=== PATIENT | male | born 1965 | race Caucasian/White ===

== ENCOUNTER 2020-09-26 15:49 | Emergency (ER) | payer OTHER, SELFPAY ==
[2020-09-26] VITALS (22 sets, daily range): BP systolic 128–181; BP diastolic 89–112; PULSE 60–85; RESP 12–20; TEMP 36.3; O2SAT 95–99
--- NOTE | ~2020-09-26 | CT_ITS ---
EXAMINATION: CT abdomen pelvis w con INDICATION: Abdominal pain TECHNIQUE: Computed tomographic images of the abdomen and pelvis were obtained after the administrati on of 100 cc of Omnipaque 350 intravenous contrast. The dose-length product (DLP) was 1521.18 mGy-cm. Automated exposure control and iterative reconstruction technique were employed. COMPARISON: None available FINDINGS: Minimal dependent atelectasis is present in the lung bases. The heart size is normal. The l iver is diffusely low in attenuation when compared with the spleen, consistent with hepatic steatosis . There is a 10 mm cyst of the right hepatic lobe. The spleen, pancreas, and adrenal glands are soco l. The gallbladder is surgically absent. There is a 5 mm nonobstructing stone of the left kidney lowe r pole. There is a wedge-shaped area of decreased perfusion in the right kidney upper pole. A retroao rtic left renal vein is noted. No pathologically enlarged abdominal or pelvic lymph nodes are identif ied. There is no free intraperitoneal gas or evidence of bowel obstruction. The appendix is normal. T here is moderate lumbar spondylosis at L5-S1. A fat-containing umbilical hernia is noted. IMPRESSION: 1. No CT correlate for the patient's symptoms. 2. Wedge-shaped area of decreased perfusion in the right kidney upper pole which could reflect focal infarct, infection, or possibly neoplasm. Follow-up with nonemergent CT or MRI without and with contr ast is recommended. 3. Diffuse hepatic steatosis. Reviewed, dictated and finalized at location A. IMPRESSION: 1. No CT correlate for the patient's symptoms. 2. Wedge-shaped area of decreased perfusion in the right kidney upper pole whic h could reflect focal infarct, infection, or possibly neoplasm. Follow-up with nonemergent CT or MRI without and with contrast is recommended. 3. Diffuse hepatic steatosis.
--- NOTE | 2020-09-26 15:54 | ECG_ITS ---
Measurements Intervals [place] Rate: 61 P: 19 [place]: 199 QRS: 1 QRSD: 103 T: 41 QT: 429 QTc: 432 Interpretive Statements SINUS RHYTHM BORDERLINE AV CONDUCTION DELAY EARLY PRECORDIAL R/S TRANSITION BASELINE ARTIFACT- I, III, AVL, AVF BORDERLINE ECG Electronically Signed On 09-26-2020 18:17:59 CDT by Gavin Regalado D.O.
[2020-09-26 16:19] LABS: Basophils Percent Auto 0.3 % (0.2-1.2); Eosinophils Absolute Auto 0.2 K/mm3 (0-0.3); Eosinophils Percent Auto 1.5 % (0-4.4); Hematocrit 46.3 % (42.0-52.0); Hemoglobin 16.2 g/dL (14.0-18.0); Immature Granulocyte Absolute 0.03 K/mm3 (0.00-0.031); Immature Granulocyte Percent A 0.2 % (0-0.5); Lymphocytes Absolute Auto 2.68 K/mm3 (0.9-3.2); Lymphocytes Percent Auto 20.4 % (18.3-44.2); Mean Corpuscular Hemoglobin 31.6 pg (26-34); Mean Corpuscular Volume 90.3 fl (80-100); Mean Platelet Volume 10.2 fl (7.4-10.4); Monocytes Absolute Auto 1.1 K/mm3 (0.1-0.6); Monocytes Percent Auto 8.1 % (2.6-8.5); Neutrophils Absolute Auto 9.2 K/mm3 (1.3-6.7); Neutrophils Percent Auto 69.5 % (45.5-73.1); Platelet Count Result 277 k/mm3 (150-375); Red Blood Count 5.13 M/mm3 (4.6-6.20); White Blood Count 13.2 K/mm3 (4.5-10.0)
[2020-09-26 16:44] LABS: Alanine Aminotransferase 48 U/L (4-50); Albumin Level 4.7 g/dL (3.5-5.1); Alkaline Phosphatase 96 U/L (38-126); Anion Gap 14 mmol/L (8-16); Aspartate Amino Transferase 36 U/L (17-59); Bilirubin,Total 0.5 mg/dL (0.2-1.3); Blood Urea Nitrogen 18 mg/dL (9-20); Calcium 10.2 mg/dL (8.4-10.2); Carbon Dioxide 18 mmol/L (22-30); Chloride 106 mmol/L (98-107); Estimated CRCL calculation 98 ml/min; Estimated Glomerular Filt Rate > 60; Glucose 138 mg/dL (65-110); Lipase 63 U/L (23-300); Potassium 4.1 mmol/L (3.4-5.0); Sodium 138 mmol/L (137-145)
[2020-09-26] MEDS: SODIUM CHLORIDE 0.9% IV 1,000 ML 999 ML IV CONT (17:12)
[2020-09-26] MEDS: FAMOTIDINE 20 MG/2 ML VIAL IV PUSH (17:14)
[2020-09-26] MEDS: MORPHINE SULFATE (*CRX) 4 MG/ML INJ IV PUSH (17:14)
[2020-09-26] MEDS: PROMETHAZINE HCL 25 MG/ML AMPUL 12.5 MG IV PUSH (17:14)
[2020-09-26 17:50] LABS: Add Urine Microscopic? YES; Appearance Urine Clear (Clear); Bilirubin Urine Negative (Negative); Blood Urine Negative (Negative); Color Urine Straw (Yellow); Glucose Urine UA Negative (Negative); Ketones Urine Trace mg/dL (Negative); Leukocyte Esterase Ur Negative LEU/UL (Negative); Nitrate Urine Negative (Negative); Protein Urine 1+ mg/dL (Negative); RBC Urine 0-2 /hpf (0-2); Specific Grav Ur 1.032 (1.001-1.035); Urobilinogen Urine Negative mg/dL (<2.0); WBC Urine 0-3 /hpf
--- NOTE | 2020-09-26 18:08 | ED.GENADULT ---
HPI - General Adult General Chief complaint: Abdominal Pain Stated complaint: epigastric/abdominal pain Time Seen by Provider: 09/26/20 16:44 Source: patient and RN notes reviewed Mode of arrival: ambulatory Limitations: no limitations History of Present Illness HPI narrative: Patient is a 54-year-old male who presents to emergency department for evaluation of severe abdominal pain that began acutely just prior to arrival patient denies similar occurrence in the past he had just eaten some cottage cheese which was new and began to have sudden onset of pain in the epigastrium which persisted with nausea vomiting and diaphoretic state patient presents with his very uncomfortable has not taken anything for his symptoms denies any recent illness or other complaints and had felt fine prior to the onset of symptoms Related Data Allergies Allergy/AdvReac Type Severity Reaction Status Date / Time No Known Allergies Allergy Verified 09/26/20 15:54 Review of Systems Review of Systems: All systems reviewed & are unremarkable except as noted in HPI and below PMFSH Past Medical History Medical History Acute bilateral low back pain without sciatica Essential hypertension High serum cholestanol Hyperglycemia Surgical History Surgical History H/O lumbar discectomy Hx of cholecystectomy Family History Family History (Updated 08/05/19 @ 09:07 by Barb Taylor [facility]) Father Family history of coronary artery disease Mother Diabetes mellitus Hypertension Sibling Hypothyroidism Social History Social History Smoking status: Never smoker Alcohol intake: current Gender identity (if verbalized by the patient): Male Exam Narrative: GENERAL: Ill-appearing, well-nourished, uncomfortable and in no acute distress. HEAD: Normocephalic, atraumatic. EYES: PERRLA and EOMI. ENT: Nares clear, no rhinorrhea or epistaxis. Mucous membranes moist. Oropharynx without tonsillar hypertrophy exudate or other lesions. Bilateral TMs pearly g[place] nonbulging NECK: Supple. No adenopathy or masses. No carotid bruits or JVD CHEST: Clear to auscultation. No respiratory distress. No wheezes rales or rhonchi HEART: Regular rate and rhythm. No murmur heard. Normal peripheral pulses. ABDOMEN: Soft, generalized tenderness, nondistended, normal active bowel sounds. EXTREMITIES: Normal range of motion. No edema. SKIN: Warm, dry, no rash. NEURO: No focal deficits. Alert and oriented x3. PSYCH: Normal mood and affect. Course Course Emergency Course: Patient evaluated for abdominal pain in the emergency department was medicated had CT imaging and other evaluation he is resting comfortably in the room at this time with resolution of his symptoms patient feels much comfortable. Patient with no other concerning findings at this time will be discharged home with outpatient follow-up she is agreeing with this plan he is afebrile nontoxic-appearing no distress and felt appropriate for outpatient reevaluation Vital Signs Vital signs: Vital Signs Temperature 97.4 F L 09/26/20 15:49 Pulse Rate 62 09/26/20 15:49 Respiratory Rate 20 09/26/20 15:49 Blood Pressure 128/92 H 09/26/20 15:49 Pulse Oximetry 98 09/26/20 15:49 Temperature 97.4 F L 09/26/20 15:49 Pulse Rate 66 09/26/20 19:01 Respiratory Rate 14 09/26/20 19:01 Blood Pressure 157/93 H 09/26/20 19:01 Pulse Oximetry 99 09/26/20 19:01 Medical Decision Making Vital Signs Vital Signs: Vital Signs Temperature 97.4 F L 09/26/20 15:49 Pulse Rate 62 09/26/20 15:49 Respiratory Rate 20 09/26/20 15:49 Blood Pressure 128/92 H 09/26/20 15:49 Pulse Oximetry 98 09/26/20 15:49 Temperature 97.4 F L 09/26/20 15:49 Pulse Rate 66 09/26/20 19:01 Respiratory Rate 14 09/26/20 19:01 Blood
[2020-09-26] MEDS: HYOSCYAMINE SULFATE 0.125 MG TABLET PO (18:29)
[2020-09-26] MEDS: LACTATED RINGERS 1,000 ML 999 ML IV CONT (18:29)
[2020-09-26] MEDS: ONDANSETRON INJ 4 MG/2 ML VIAL IV PUSH (19:31)
[2020-09-26] MEDS: KETOROLAC 30 MG/ML VIAL (*BKC) IV PUSH (19:39)
--- NOTE | 2020-09-26 20:03 | PC.NURSE ---
PO challenge of ice chips given to pt. family at bedside. reports pain improved since arrival.
== END 2020-09-26 21:03 | disposition home or self-care (01) ==
PROVIDERS: Emergency Provider Emergency Medicine; PCP Internal Medicine
DX: R10.9 Unspecified abdominal pain (principal); I10 Essential (primary) hypertension; K76.0 Fatty (change of) liver, not elsewhere classified; R94.31 Abnormal electrocardiogram [ECG] [EKG]; R93.421 Abnormal radiologic findings on diagnostic imaging of right kidney
CPT/HCPCS: 36415; 74177; 80053; 81001; 83690; 85025; 93005; 96361; 96374; 96375; 99284; A9270; J1885; J2270; J2405; J2550; J7030; J7120; Q9967

== ENCOUNTER 2022-08-16 17:01 | Emergency (ER) | payer OTHER, SELFPAY ==
[2022-08-16 17:05] VITALS: BP 143/98; PULSE 62; RESP 20; TEMP 36.4; O2SAT 99
--- NOTE | 2022-08-16 17:08 | ED.ABDPAIN ---
HPI - Abdominal Pain General Chief Complaint: Abdominal Pain Stated Complaint: ABD/FLANK PAIN Time Seen by Provider: 08/16/22 17:08 Source: patient, RN notes reviewed and old records reviewed Mode of arrival: ambulatory Limitations: no limitations History of Present Illness HPI narrative: 56-year-old male presents to the [facility] with complaints of left-sided abdominal, flank pain that started at 7:00 a.m. this Morning. patient reports nausea. Denies chest pain. Shortness of breath. Denies history of kidney stones or diverticulitis. no treatment prior to arrival Last bowel movement this morning, states it was normal Onset (ago): hour(s) (10) Related Data Allergies Allergy/AdvReac Type Severity Reaction Status Date / Time No Known Allergies Allergy Verified 08/16/22 17:06 Review of Systems Review of Systems: All systems reviewed & are unremarkable except as noted in HPI and below Constitutional: Constitutional: Reports no additional constitutional complaints Eyes: Eyes: Reports no additional eye complaints ENT: Reports system reviewed and no additional complaints, except as documented Cardiovascular: Cardiovascular: Reports no additional cardiovascular complaints, Denies chest pain and Denies dyspnea Respiratory: Respiratory: Reports no additional respiratory complaints, Denies chest congestion, Denies cough and Denies dyspnea Gastrointestinal: Gastrointestinal: Reports as per HPI, Reports abdominal pain, Reports nausea and Denies vomiting Musculoskeletal: Musculoskeletal: Reports no additional musculoskeletal complaints Integumentary/Breasts: Skin/Breast: Reports system reviewed and no additional complaints, except as docu Neurologic: Reports system reviewed and no additional complaints, except as documented Psychiatric: Psychiatric: Reports no additional psychiatric complaints Allergic/Immunologic: Allergic/Immunologic: Reports no additional allergic/immunologic complaints [facility] Past Medical History Medical History Acute bilateral low back pain without sciatica Essential hypertension High serum cholestanol Hyperglycemia Surgical History Surgical History H/O lumbar discectomy Hx of cholecystectomy Family History Family History Father Family history of coronary artery disease Mother Diabetes mellitus Hypertension Sibling Hypothyroidism Social History Social History Smoking status: Never smoker Alcohol intake: current Lack of Transportation: No Lack of Food: Never True Current Housing: I Have Housing Concerned About Future Housing: No Difficulty Paying Gas/Electric Bills: No Difficulty Paying for Meds: No Currently Unemployed: No Education: Master's Degree or Higher Difficulty w/ Childcare or Family Care: No Gender identity (if verbalized by the patient): Male Comments At the time of my signature, I reviewed and agree with the nursing past medical, surgical, social, and family history. There is no relevant family history pertinent to the patient complaint. Exam Const: General: cooperative, healthy appearing, no acute distress, well developed, alert, acute distress moderate (pain), uncomfortable, well nourished and overweight Nutritional Appearance: well nourished Orientation/consciousness: patient oriented x3 Limitations: no limitations HENMT: Head: normal to inspection Ears: hearing grossly normal bilaterally and external ears normal Face/Nose/Sinus: Normal external nose present, Normal nares present, Normal nasal mucous membranes and turbinates present and normal facial exam Face and sinus: normal facial exam Mouth: Yes moist mucous membranes Eyes: General: appearance normal, both eyes and all related structures Alignment and Position:
== END 2022-08-16 17:25 | disposition short-term general hospital (02) ==
PROVIDERS: Emergency Provider Nurse Practitioner; PCP Internal Medicine
DX: R10.9 Unspecified abdominal pain (principal); I10 Essential (primary) hypertension; E78.00 Pure hypercholesterolemia, unspecified
CPT/HCPCS: 81003; 99212; G0463

== ENCOUNTER 2022-08-16 17:40 | Emergency (ER) | payer OTHER, SELFPAY ==
--- NOTE | ~2022-08-16 | CT_ITS ---
EXAMINATION: CT abdomen pelvis wo con DATE: 08/16/2022 21:09 INDICATION: left flank TECHNIQUE: Computed tomography (CT) of the abdomen and pelvis was performed without intravenous contr ast. Automated exposure control and iterative reconstruction technique were employed. The dose-length product was 1389.21 mGy-cm. COMPARISON: 09/26/2020. FINDINGS: Lower thorax: Calcified left upper lobe granuloma. Mild bibasilar scar/atelectasis. Aortic valve and coronary artery calcification. Mild symmetric gynecomastia. Liver: Enlarged. Subcentimeter right lobe hypodensity, likely cyst or hemangioma. Mild diffuse fatty infiltration Biliary/Gallbladder: Gallbladder is absent. No bile duct dilation. Pancreas: No mass or duct dilation. Spleen: Normal. Adrenals:No mass. Kidneys: 6 mm calcification at the left UPJ. Multiple punctate bilateral nonobstructing calculi. No s uspicious mass. Moderate left pelviectasis and caliectasis. Moderate left perinephric stranding. Righ t upper pole cortical scar. GI tract: No small or large bowel dilation. Normal appendix. Mesentery/Peritoneum: No ascites, mass, or free air. Retroperitoneum: No mass. Mild atherosclerotic abdominal aortic and/or arterial calcifications. Pelvis: Pelvic organs are within normal limits. Soft Tissues: Uncomplicated, fat-containing umbilical and left inguinal hernias. Bones: No acute osseous finding. IMPRESSION: Hepatomegaly and steatosis. 6 mm calcification in the left UPJ causing moderate obstructive uropathy. Reviewed, dictated and finalized at location K.
[2022-08-16 17:52] VITALS: BP 182/74; PULSE 64; RESP 20; TEMP 36.2; O2SAT 97
[2022-08-16 18:15] LABS: Basophils Percent Auto 0.3 % (0.2-1.2); Hematocrit 47.6 % (42.0-52.0); Hemoglobin 16.7 g/dL (14.0-18.0); Immature Granulocyte Absolute 0.04 K/mm3 (0.00-0.031); Immature Granulocyte Percent A 0.3 % (0-0.5); Lymphocytes Absolute Auto 0.92 K/mm3 (0.9-3.2); Lymphocytes Percent Auto 5.8 % (18.3-44.2); Mean Corpuscular HGB Conc 35.1 g/dl (32-36); Mean Corpuscular Hemoglobin 32.6 pg (26-34); Mean Corpuscular Volume 92.8 fl (80-100); Mean Platelet Volume 10.3 fl (7.4-10.4); Monocytes Absolute Auto 0.7 K/mm3 (0.1-0.6); Monocytes Percent Auto 4.1 % (2.6-8.5); Neutrophils Absolute Auto 14.2 K/mm3 (1.3-6.7); Neutrophils Percent Auto 89.5 % (45.5-73.1); Platelet Count Result 274 k/mm3 (150-375); Red Blood Count 5.13 M/mm3 (4.6-6.20); Red Cell Distribution Width 12.5 % (11.5-14.5); White Blood Count 15.9 K/mm3 (4.5-10.0)
[2022-08-16 18:27] LABS: Alanine Aminotransferase 39 U/L (6-50); Albumin Level 4.9 g/dL (3.5-5.1); Alkaline Phosphatase 72 U/L (38-126); Anion Gap 12 mmol/L (8-16); Aspartate Amino Transferase 29 U/L (17-59); Blood Urea Nitrogen 18 mg/dL (9-20); Calcium 9.2 mg/dL (8.4-10.2); Carbon Dioxide 20 mmol/L (22-30); Chloride 108 mmol/L (98-107); Estimated CRCL calculation 74 ml/min; Estimated Glomerular Filt Rate 58; Glucose 146 mg/dL (65-110); Potassium 4.1 mmol/L (3.4-5.0); Sodium 140 mmol/L (137-145)
[2022-08-16 18:33] LABS: Appearance Urine Clear (Clear); Bacteria Urine None Seen /hpf; Bilirubin Urine Negative (Negative); Blood Urine Trace (Negative); Color Urine Yellow (Yellow); Glucose Urine UA Negative (Negative); Ketones Urine 1+ mg/dL (Negative); Leukocyte Esterase Ur Negative LEU/UL (Negative); Nitrate Urine Negative (Negative); Non Pathogenic Casts 0-2; Protein Urine Trace mg/dL (Negative); RBC Urine 0-2 /hpf (0-2); Specific Grav Ur 1.022 (1.001-1.035); Squamous Epithelial Cell Urine None seen /hpf (Few); Urobilinogen Urine 0.2 mg/dL (<2.0); WBC Urine 0-5 /hpf; pH Urine 5.5 (5.0-9.0)
[2022-08-16 18:36] LABS: Add Urine Microscopic? YES
--- NOTE | 2022-08-16 21:01 | ED.GENADULT ---
HPI - General Adult General Chief complaint: Urogenital-Male <Maverick Augustin PA-C - Last Filed: 08/17/22 00:10> Stated complaint: flank pain <Maverick Augustin PA-C - Last Filed: 08/17/22 00:10> Time Seen by Provider: 08/16/22 20:54 <Maverick Augustin PA-C - Last Filed: 08/17/22 00:10> Source: patient <Maverick Augustin PA-C - Last Filed: 08/17/22 00:10> Mode of arrival: ambulatory <SIXTO Willis Last Filed: 08/17/22 00:10> Limitations: no limitations <Maverick Augustin PA-C Last Filed: 08/17/22 00:10> History of Present Illness HPI narrative: This is a 56-year-old male who presents to the ED with chief complaint of left flank pain radiating to the left side of the abdomen beginning around 730 this morning.. He reports he is nauseous but has not vomited. Denies any fevers, chills, urinary symptoms. <Maverick Augustin PA-C Last Filed: 08/17/22 00:10> Related Data Allergies/adverse reactions: Allergies Allergy/AdvReac Type Severity Reaction Status Date / Time No Known Allergies Allergy Verified 08/16/22 17:06 <Maverick Augustin PA-C - Last Filed: 08/17/22 00:10> [facility] Past Medical History Medical History: Medical History Acute bilateral low back pain without sciatica Essential hypertension High serum cholestanol Hyperglycemia <SIXTO Willis Last Filed: 08/17/22 00:10> Surgical History Surgical History: Surgical History H/O lumbar discectomy Hx of cholecystectomy <SIXTO Willis Last Filed: 08/17/22 00:10> Family History Family History: Family History Father Family history of coronary artery disease Mother Diabetes mellitus Hypertension Sibling Hypothyroidism <Maverick Augustin PA-C - Last Filed: 08/17/22 00:10> Social History Social History: Social History Smoking status: Never smoker Alcohol intake: current Lack of Transportation: No Lack of Food: Never True Current Housing: I Have Housing Concerned About Future Housing: No Difficulty Paying Gas/Electric Bills: No Difficulty Paying for Meds: No Currently Unemployed: No Education: Master's Degree or Higher Difficulty w/ Childcare or Family Care: No Gender identity (if verbalized by the patient): Male <Maverick Augustin PA-C - Last Filed: 08/17/22 00:10> Exam Narrative: GENERAL: Writhing in pain. HEAD: Normocephalic, atraumatic. EYES: PERRLA and EOMI. ENT: Nares clear, no rhinorrhea or epistaxis. Mucous membranes moist. Oropharynx without tonsillar hypertrophy exudate or other lesions. NECK: Supple. No adenopathy or masses. CHEST: No respiratory distress. Clear to auscultation. No wheezes rales or rhonchi HEART: Regular rate and rhythm. No murmur heard. Normal peripheral pulses. ABDOMEN: Left flank tenderness. Negative right flank tenderness. Soft, otherwise nontender, nondistended, normal active bowel sounds. MSK: Normal range of motion. No edema. SKIN: Warm, dry, no rash. NEURO: Alert and oriented x3. No focal deficits. PSYCH: Normal mood and affect. <Maverick Augustin PA-C - Last Filed: 08/17/22 00:10> Course INSEAMER/PA Physician Supervision Patient with proximal kidney stone without evidence of significant hydronephrosis, no severe acute kidney injury, no urinary tract infection. Patient was given IV fluids, antiemetic and pain medication with good improvement in his symptoms. He was able to tolerate oral intake and had good pain control at time of reassessment. Plan for outpatient follow-up with urology. I personally evaluated and examined the patient in conjunction with the APC and agree with the assessment, treatment plan and disposition of the patient as recorded by the APC. <Blanca Ruvalcaba MD - Last Filed: 08/17
[2022-08-16] MEDS: ONDANSETRON INJ 4 MG/2 ML VIAL IV PUSH (21:51)
[2022-08-16] MEDS: HYDROmorphone HCL INJ (*CRX) 1 MG/ML SYR 0.5 MG IV PUSH (21:51)
== END 2022-08-16 22:40 | disposition home or self-care (01) ==
PROVIDERS: Emergency Medicine; Emergency Provider Physician Assistant; PCP Internal Medicine
DX: N13.9 Obstructive and reflux uropathy, unspecified (principal); N20.1 Calculus of ureter; I10 Essential (primary) hypertension; Z90.49 Acquired absence of other specified parts of digestive tract; K76.0 Fatty (change of) liver, not elsewhere classified
CPT/HCPCS: 36415; 74176; 80053; 81001; 85025; 96374; 96375; 99284; J1170; J2405

== ENCOUNTER → 2022-08-22 11:35 | Outpatient (CLI) | payer OTHER, SELFPAY ==
--- NOTE | ~2022-08-22 | XR_ITS ---
EXAM: XR abdomen/kub 1V DATE: 08/22/2022 11:59 HISTORY: Left ureteral stone . COMPARISON: CT abdomen and pelvis 08/16/2022. FINDINGS: Cholecystectomy clips. Clear lung bases. Normal bowel gas pattern. No organomegaly. 4 mm x 6 calcification in the left pelvis. Regional bones and soft tissues normal for age. IMPRESSION: 4 mm x 6 stone in the left distal ureter/left UVJ. Reviewed, dictated and finalized at location K.
== END ==
PROVIDERS: PCP Internal Medicine; Visit Provider Urology
DX: N20.1 Calculus of ureter (principal)
CPT/HCPCS: 74018

== ENCOUNTER 2022-08-25 11:05 | Outpatient (CLI) | payer OTHER, SELFPAY ==
--- NOTE | 2022-08-25 11:29 | ECG_ITS ---
Measurements Intervals [place] Rate: 67 P: 31 [place]: 211 QRS: -17 QRSD: 108 T: 16 QT: 412 QTc: 436 Interpretive Statements SINUS RHYTHM WITH FIRST DEGREE AV BLOCK MODERATE VOLTAGE CRITERIA FOR LVH, CONSIDER NORMAL VARIANT [MEETS CRITERIA IN ONE OF: R(aVL), S(V1), R(V5), R(V5/V6)+S(V1)] COMPARED TO ECG 09/26/2020 15:58:47 FIRST DEGREE AV BLOCK NOW PRESENT Electronically Signed On 08-25-2022 11:53:44 CDT by Heather Venegas M.D.
== END 2022-08-25 11:06 | disposition home or self-care (01) ==
LOC: ANHSURGERY 11:09
PROVIDERS: PCP Internal Medicine; Visit Provider Urology
DX: I10 Essential (primary) hypertension (principal); Z01.818 Encounter for other preprocedural examination; I44.0 Atrioventricular block, first degree
CPT/HCPCS: 93005

== ENCOUNTER 2022-08-26 12:06 | Outpatient (CLI) | payer OTHER, SELFPAY ==
--- NOTE | ~2022-08-26 | XR_ITS ---
EXAMINATION: XR abdomen/kub 1V INDICATION: Calculus of the kidney TECHNIQUE: Supine views of the abdomen were obtained on 2 radiographs. COMPARISON: 08/22/2022 FINDINGS: There is a 5 mm calcification of the left pelvis projecting just lateral to the sacrum whic h may reflect the previously described distal ureteral stone. No additional suspected urolithiasis is identified. The bowel gas pattern is normal. There is a moderate volume of stool in the proximal col on. IMPRESSION: 1. Possible 5 mm stone of the distal left ureter. Reviewed, dictated and finalized at location B.
== END 2022-08-26 12:07 | disposition home or self-care (01) ==
LOC: ANHSURGERY 12:07
PROVIDERS: PCP Internal Medicine; Visit Provider Urology
DX: N20.0 Calculus of kidney (principal)
CPT/HCPCS: 74018

== ENCOUNTER 2022-10-04 08:16 | Outpatient (CLI) | payer OTHER, SELFPAY ==
--- NOTE | 2022-10-17 16:41 | WPDHOMESLEEP ---
Sleep Study - Home Unattended Date of Study: 10/04/22 Ordering Provider: Azeem Malin DO Interpreting Provider: Tracy Mejia DO Home Sleep Study Type: Watch PAT Height: 1.8 m Weight: 104.326 kg Body Mass Index: 32.1 Neck Circumference (inches): 16.5 [place]: 11 Reason for Sleep Study Snoring, nocturnal gasping Sleep History The patient is a 57-year-old male with hypertension, hyperlipidemia, prediabetes and GERD that had a sleep study ordered by his primary care physician for evaluation of sleep apnea. The patient rarely awakens from sleep short of breath. He denies awakening at night with heartburn, belching or cough. He frequently snores and is frequently loud enough that others complain. He rarely has trouble sleeping when he has a cold. He occasionally wakes up gasping for air throughout the night. He denies having breathing problems at night observed by himself or others. He rarely sweats excessively at night. He rarely has heart palpitations or irregular heartbeats during the night. He occasionally falls asleep during the day but never while driving. He denies sleep paralysis, cataplexy and hypnagogic / hypnopompic hallucinations. He denies having trouble at school or work due to sleepiness. He denies feeling afraid of going to sleep. He denies having nightmares. He frequently remembers his dreams. He rarely has thoughts racing through his mind. He denies feeling sad or depressed. He rarely has anxiety. He rarely has muscular tension. He rarely notices parts of his body jerk. He denies kicking during the night. He denies having crawling and aching feelings in his legs and denies having leg pain during the night. He denies grinding his teeth during sleep and denies awakening with morning jaw pain. He is rarely bothered by pain during the day but never awakened by pain during the night. He occasionally wakes up feeling stiff in the morning. He occasionally wakes up with sore or achy muscles. He occasionally wakes up with pain in the neck, spine and other joints. He goes to bed between 11-11 30 on both weekdays and weekends. It takes him 10-15 minutes to fall asleep. He wakes up 2 times throughout the night for unknown reasons but is able to fall back asleep within a few minutes. He wakes up at 6:30 a.m. on weekdays and at 7:30 a.m. on the weekends. He typically gets 6-8 hours of sleep per night. He does not stay in bed after waking up in the morning. He currently lives with his . He denies consuming any caffeinated beverages within 2 hours of bedtime. He denies engaging in physical exercise before bedtime. He will watch television before falling asleep. He will take naps in the afternoon or the evening and they are refreshing. He denies consuming any caffeinated beverages throughout the day. He denies tobacco, alcohol and recreational drug use. [facility] Past Medical History Medical History Acute bilateral low back pain without sciatica Essential hypertension High serum cholestanol Hyperglycemia Surgical History Surgical History H/O lumbar discectomy Hx of cholecystectomy Family History Family History Father Family history of coronary artery disease Mother Diabetes mellitus Hypertension Sibling Hypothyroidism Social History Social History Smoking status: Never smoker Alcohol intake: current Alcohol use details: RARE Substance use: never Substance use type: does not use Lack of Transportation: No Lack of Food: Never True Current Housing: I Have Housing Concerned About Future Housing: No Difficulty Paying Gas/Electric Bills: No Difficulty Paying for Meds: No Currently Unemployed: No Education: Master's Degree or Higher Diffi
[2022-10-17 16:52] VITALS: BMI 32.1
== END 2022-10-05 13:26 | disposition home or self-care (01) ==
LOC: ANHCSM 08:17
PROVIDERS: PCP Internal Medicine; Visit Provider Internal Medicine
DX: G47.33 Obstructive sleep apnea (adult) (pediatric) (principal); G47.19 Other hypersomnia; R06.83 Snoring; D75.1 Secondary polycythemia; I10 Essential (primary) hypertension
CPT/HCPCS: 95800

== ENCOUNTER 2023-12-28 14:45 | Outpatient (RCR) | payer OTHER, SELFPAY ==
--- NOTE | 2023-12-01 15:31 | OTOPEVAL1 ---
Assessment and note entered by DIA Caldwell/Shaunna, CHT Evaluation Information Assessment Status Evaluation Diagnosis Left lateral epicondylitis ICD-10 Condition Codes (OT) M25.522 Subjective Information Patient is right handed. He has been experiencing left elbow pain for about 2-3 months. He reports pain with gripping and lifting his water bottle, unlocking the car, and any gripping tasks. 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 Reported Pain Level Pain Score 1: Self Report Assessment OT Clinical Summary Patient referred to OT with dx of left lateral epicondylitis. 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 Skilled OT indicated for HEP instruction/progression, strengthening, modalities, and manual therapy to facilitate reduced pain, improved strength, and return to pain-free functioning. Plan of Care Interventions Therapeutic Exercise,Manual Therapy,Hot Pack/Cold Pack,Ultrasound,Paraffin OT Services Indicated Yes Treatment Frequency and 2x/week for 8 visits Duration These treatments will address the objective and functional deficits as defined above. The patient will be advanced safely and appropriately in order for the patient to progress towards his/her prior level of function. Additional exercises will be introduced and as well as a comprehensive home exercise program upon discharge, if needed, ?to ensure carryover of functional gains achieved in the clinic. This treatment plan has been reviewed and agreement upon by the patient.
--- NOTE | 2023-12-01 15:31 | OPREHPOC ---
Outpatient Therapy Plan of Care This is a Multidisciplinary Plan of Care that may contain components documented by all disciplines (PT, OT, and ST.) OT Problem 1 OT Problem #1 Knowledge Deficit OT Goal 1 Goal / Goal Update 1. Patient to be independent with instructed materials. Target Visit 8 OT Problem 2 OT Problem #2 Pain OT Goal 1 Goal / Goal Update 1. Patient to report reduced pain in the left elbow to 0/10 at rest. 2. Patient to report reduced pain in the left elbow to 2/10 at worst . Target Visit 8 OT Problem 3 OT Problem #3 Impaired Strength OT Goal 1 Goal / Goal Update Patient to improve functional strength of the left UE for gripping, lifting, and leisure activities as measured by: 1. 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 2. being able to complete left gross wrist strengthening with 5 lbs x10 reps without pain Target Visit 8
--- NOTE | 2023-12-28 15:10 | OTOPDC ---
Assessment and note entered by IDA Caldwell/Shaunna, CHT Evaluation Information Assessment Status Discharge Diagnosis Left lateral epicondylitis ICD-10 Condition Codes (OT) M25.522 Subjective Information Patient reports no longer experiencing pain. he reports no functional limitations. He reports no pain with gripping, lifting, exercising, unlocking the car, or typing. [place] improved from 47.7% to 0%. Reported Pain Level Pain Score 0: Self Report Assessment OT Clinical Summary Patient referred to OT with dx of left lateral epicondylitis. He has progressed to having no pain with ADLs. 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 No further skilled OT indicated at this time.
== END 2023-12-28 15:53 | disposition home or self-care (01) ==
LOC: ANHGOSHOT 14:45
PROVIDERS: PCP Internal Medicine; Visit Provider Internal Medicine
DX: M77.12 Lateral epicondylitis, left elbow (principal)
CPT/HCPCS: 97018; 97035; 97110; 97140; 97165

== ENCOUNTER 2025-02-07 08:30 | Emergency (ER) | payer OTHER, SELFPAY ==
[2025-02-07 08:30] VITALS: BP 162/93; PULSE 104; RESP 18; TEMP 36.6; O2SAT 97
--- NOTE | 2025-02-07 08:32 | ED.URI ---
HPI - URI/Sore Throat General Chief Complaint: Upper Respiratory Infection Stated Complaint: fever,cough Time Seen by Provider: 02/07/25 08:32 Source: patient Mode of arrival: ambulatory Limitations: no limitations History of Present Illness HPI Narrative: patient is a 59-year-old male who presents with 2 weeks of sinus congestion and pressure along with worsening cough over the past week. had fever last night. Denies any nausea, vomiting, diarrhea. Related Data Home Medications ?Medication ?Instructions ?Recorded ?Confirmed ?Last Taken ?Type metoprolol succinate 100 mg 100 mg PO DAILY 08/23/22 11/23/23 Unknown History tablet,extended release 24 hr Allergies Allergy/AdvReac Type Severity Reaction Status Date / Time No Known Allergies Allergy Verified 02/07/25 08:48 Review of Systems Review of Systems: All systems reviewed & are unremarkable except as noted in HPI and below Constitutional: Constitutional: Denies chills, Denies fatigue, Reports fever(s), Denies headache(s), Denies malaise and Denies weakness Eyes: Eyes: Denies blurry vision, Denies itchy eyes and Denies loss of vision ENT: Denies otalgia, Denies headache(s), Reports nasal congestion, Reports sinus pain, Reports sinus pressure and Denies sore throat Cardiovascular: Cardiovascular: Denies chest pain, Denies irregular heart rhythm and Denies dyspnea Respiratory: Respiratory: Reports cough and Denies dyspnea Gastrointestinal: Gastrointestinal: Denies abdominal pain, Denies diarrhea, Denies nausea and Denies vomiting Musculoskeletal: Musculoskeletal: Denies back pain, Denies myalgias and Denies arthralgias Integumentary/Breasts: Skin/Breast: Denies pruritus and Denies rash Neurologic: Denies headache(s), Denies loss of vision and Denies weakness Psychiatric: Psychiatric: Reports no additional psychiatric complaints Endocrine: Endocrine: Denies fatigue Allergic/Immunologic: Allergic/Immunologic: Denies itchy eyes PMFSH Past Medical History Medical History Wide-complex tachycardia Family history of premature coronary artery disease Acute bilateral low back pain without sciatica Essential hypertension Hyperglycemia High serum cholestanol Surgical History Surgical History H/O lumbar discectomy Hx of cholecystectomy Family History Family History Father Family history of coronary artery disease Mother Diabetes mellitus Hypertension Sibling Hypothyroidism Social History Social History Smoking status: Never smoker Alcohol intake: current Alcohol use details: RARE Substance use: never Substance use type: does not use Lack of Transportation: No Lack of Food: Never True Current Housing: I Have Housing Concerned About Future Housing: No Difficulty Paying Gas/Electric Bills: No Difficulty Paying for Meds: No Currently Unemployed: No Education: Master's Degree or Higher Difficulty w/ Childcare or Family Care: No Living arrangements: with family Gender identity (if verbalized by the patient): Male Spiritual care concerns: No Comments At time of signature, agree with nursing past medical, surgical, social and family history. There is no relevant family history pertinent to the presenting complaint. Exam Const: General: cooperative, healthy appearing, comfortable, no acute distress and well nourished Nutritional Appearance: well nourished Orientation/consciousness: patient oriented x3 Limitations: no limitations HENMT: Head: normal to inspection, normocephalic and atraumatic Ears: hearing grossly normal bilaterally, external ears normal, TM's normal bilaterally, EAC's normal and no periauricular adenopathy Face/Nose/Sinus: Normal external nose present, Abnormal mucous membranes and turbinates present erythematous bilateral and diffuse, normal facial exam, sinuses nontender and face symmetric Face and sinus: normal facial exam, sinuses nontender and face symmetric Mouth: Yes Normal oral and palatal mucosa present, Yes lip normal, Yes tongue normal, Yes Normal salivary glands and ducts present, Yes oropharynx normal and Yes moist mucous membranes Teeth and gingiva: dentition normal Throat: posterior oropharynx normal, tonsils normal and uvula midline Eyes: General: appearance normal, both eyes and all related structures Alignment and Position: alignment normal and position normal Periorbital: periorbital findings normal Eyelids: eyelids normal Pupils: Equal, round and reactive pupils present Neck: Neck: normal visual inspection, full ROM, no lymphadenopathy and supple Chest: Chest palpation & inspection: normal inspection of the chest and normal palpation of entire chest wall Resp: Effort & Inspection: normal respiratory effort and able to speak in complete sentences Auscultation: clear to auscultation bilaterally, no crackles, no rales, no rhonchi and no wheezes Cardio: Rate: regular rate Rhythm: regular rhythm Heart sounds: S1 normal heart sound present and S2 normal heart sound present GI: Inspection: normal to inspection Skin: General skin exam: normal color and no rashes or lesions noted Neuro: General: patient oriented x3 and moves all extremities Cranial nerves: Yes Equal, round and reactive pupils present Speech: normal speech Gait exam (Neuro): Normal gait present Extrem: General: normal to inspection, full ROM and no edema Psych: Appearance: grossly normal and well kempt Mental Status: mental status grossly normal Speech and movement: Normal speech and movement present Affect: normal affect Attitude: cooperative Thought process: Normal thought process present Course Course Emergency Course: Patient is aware of diagnosis, understands and agrees to treatment plan. Anticipatory guidance given. Patient agrees to follow-up as directed and is aware of reasons to seek care at the emergency department. Portions of this record may have been created with voice recognition software Level of Care: Express Care Visit Vital Signs Vital signs: Vital Signs Temperature 36.6 C 02/07/25 08:30 Pulse Rate 104 H 02/07/25 08:30 Respiratory Rate 18 02/07/25 08:30 Blood Pressure 162/93 H 02/07/25 08:30 Pulse Oximetry 97 02/07/25 08:30 Temperature 36.6 C 02/07/25 08:30 Pulse Rate 104 H 02/07/25 08:30 Respiratory Rate 18 02/07/25 08:30 Blood Pressure 162/93 H 02/07/25 08:30 Pulse Oximetry 97 02/07/25 08:30 [facility] MDM Narrative Medical decision making narrative: Rapid COVID, flu, strep were negative. A throat culture is pending. Symptoms likely viral in etiology. Pt well hydrated appearing, in no respiratory distress, hemodynamically stable. Recommend supportive care. The patient is stable at time of discharge the clinical impression was discussed and the patient was given the opportunity to ask questions, which were addressed as completely as possible given the information available at present. Anticipatory guidance and return to care precautions were discussed and the importance of primary care follow-up was stressed and encouraged. The patient voiced understanding of the plan, indications to return, and the need for follow-up. Exam findings show no acute concerns or changes Patient is appropriate for outpatient treatment and follow-up. Differential Diagnosis Differential Diagnosis: Differential diagnosis considered: Mcghee virus, strep pharyngitis, allergic rhinitis, upper respiratory tract infection, sinusitis, rhinosinusitis, nasopharyngitis. viral pharyngitis, otitis media, otitis externa, otitis effusion, foreign body, cerumen impaction, viral syndrome, and influenza. Medical Records I have reviewed the following patient records and this information was taken into consideration when formulating the assessment and plan.: previous clinic visits Discharge Plan Discharge Clinical Impression: Upper respiratory infection with cough and congestion Patient Disposition: Home Condition: Stable Instructions: Upper Respiratory Infection (ED) Additional Instructions: Take antibiotic as prescribed. Take steroids in the morning with food. Use Tessalon Perles as needed for cough. Use inhaler with spacer as needed. Other symptomatic treatments include: -Alternate Tylenol and Motrin per package directions for fever or pain: Tylenol 650-1000mg by mouth every 4-6 hours. Do not exceed 4000mg in 24 hours. Advil (Ibuprofen) 600 mg by mouth every 6 hours. Do not exceed 2400mg in 24 hours. 8 AM: Tylenol 11 AM: Ibuprofen 2 PM: Tylenol 5 PM: Ibuprofen 8 PM: Tylenol 11 PM: Ibuprofen 2 AM: Tylenol 5 AM: Ibuprofen -Antihistamine medication such as Benadryl at night and Zyrtec/Claritin/Yeni during the day can help improve symptoms. -Use Flonase twice a day for 5 days then daily to help reduce the inflammation and dry up your sinuses. -You can also use Sudafed or Mucinex. Be sure to drink plenty of water with these medications at least 8 ounces with every dose and it is important to drink 8 to 10 glasses of water per day. Water is a natural decongestant -Eat and drink things that are easy to swallow, like tea or soup, or popsicles. -Oral rinses such as: Salt water gargles and/or may use topical anesthetic (eg. Chloraseptic spray) or lozenges to relieve dryness or throat pain). -Frequent hand washing or hand waiter/waitress cocktail lounge is one of the best ways to prevent spread of infection. -Using a vaporizer or humidifier at night will also help thin secretions and help with coughing up phlegm. Call your Primary Care Doctor and make a follow-up appointment in 3 days. If your cough worsens, you develop a fever greater than 103, you develop shaking chills, a fast heartbeat, trouble breathing and/or feel you are are breathing much faster than usual, call your Primary Care Doctor or go to the ER. Patient Language: Romanian Prescriptions: New (DME) Aerochamber MV Spacer See Rx Instructions .Route Qty: 1 0RF Rx Instructions: As directed prednisone 20 mg tablet 40 mg PO DAILY 5 Days Qty: 10 0RF benzonatate 100 mg capsule 100 mg PO BID PRN (Reason: cough) Qty: 14 0RF albuterol sulfate 90 mcg/actuation HFA aerosol inhaler 2 puff inhalation QID PRN (Reason: shortness of breath or wheezing) Qty: 6.7 0RF amoxicillin-pot clavulanate 875-125 mg tablet 1 tablet PO Q12H 10 Days Qty: 20 0RF No Action metoprolol succinate 100 mg tablet extended release 24 hr 100 mg PO DAILY sertraline 25 mg tablet 25 mg PO DAILY Qty: 30 1RF rosuvastatin 10 mg tablet 10 mg PO DAILY Qty: 90 1RF losartan 25 mg tablet 25 mg PO DAILY Qty: 90 1RF Follow-up/Referrals: Azeem Malin DO [Primary Care Provider, Internal Medicine] - 3 Days Time of Disposition: 08:47
== END 2025-02-07 08:50 | disposition home or self-care (01) ==
PROVIDERS: Emergency Provider Nurse Practitioner Family; PCP Internal Medicine
DX: J06.9 Acute upper respiratory infection, unspecified (principal); Z20.822 Contact with and (suspected) exposure to COVID-19; I10 Essential (primary) hypertension
CPT/HCPCS: 99213; G0463